=== PATIENT | male | born 1975 | race African-American/Black ===

== ENCOUNTER 2020-10-01 18:01 | Observation (INO) ==
[2020-10-01] MEDS ORDERED: LORazepam 2 MG/1 ML VIAL IV STA (18:24)
[2020-10-01] MEDS ORDERED: FUROSEMIDE 40 MG/4 ML VIAL IV STA (18:24)
[2020-10-01 18:37] LABS: Basophils % 0.4 % (0.0-0.8); Eosinophils # 0.2 10*3/uL (0.0-0.87); Eosinophils % 2.7 % (0.00-10.9); Hematocrit 39.1 VOL% (42.0-52.0); Hemoglobin 14.2 GM/DL (14.0-18.0); Immature Granulocytes % 0.7 %; Immature Granulocytes Absolute 0.05 #; Lymphocytes % 13.5 % (21.2-54.2); Mean Corpuscular HGB Conc 36.3 GM/DL (32-36); Mean Corpuscular Volume 98.5 FL (87-102); Mean Platelet Volume 12.5 FL (9.6-12.0); Monocytes # 0.5 10*3/uL (0.11-0.8); Monocytes % 6.2 % (1.7-12.7); Neutrophils % 76.5 % (38.7-73.9); Platelet Count 128 T/CUMM (130-400); Red Blood Count 3.97 MC/CUMM (3.8-5.5); Red Cell Distribution Width 14.3 % (9.3-17.3); White Blood Count 7.4 T/CUMM (4-12)
[2020-10-01 18:45] LABS: INR 1.1; PT Patient Result 11.8 SECS (9.8-11.9)
[2020-10-01 19:03] LABS: Alanine Aminotransferase 107 U/L (16-61); Albumin 3.9 G/DL (3.4-5.0); Alkaline Phosphatase 81 U/L (45-117); Aspartate Amino Transferase 120 U/L (0-37); Blood Urea Nitrogen 8 MG/DL (7-18); Calcium 9.4 MG/DL (8.5-10.1); Carbon Dioxide 24 MMOL/L (21-32); Chloride 99 MMOL/L (98-107); Estimated Glom Filtration Rate 108 ML/MIN; Glucose 101 MG/DL (74-106); Potassium 3.4 MMOL/L (3.5-5.1); Sodium 136 MMOL/L (136-145)
[2020-10-01 19:04] LABS: Troponin I 0.178 NG/ML (0.00-0.045)
[2020-10-01] MEDS ORDERED: ALBUTEROL 2.5 MG/3 ML NEB RESP TX PRN (19:21)
[2020-10-01] MEDS ORDERED: hydrALAZINE 20 MG/1 ML VIAL IV PRN (19:21)
[2020-10-01] MEDS ORDERED: ACETAMINOPHEN 325 MG TABLET PO PRN (19:21)
[2020-10-01] MEDS ORDERED: ASPIRIN 325 MG TABLET PO STA (19:39)
[2020-10-01] MEDS: LORazepam 2 MG/1 ML VIAL IV PRN (23:50)
[2020-10-02] MEDS: ENOXAPARIN 40 MG/0.4 ML SYRINGE SUBCUT SCH (05:40)
[2020-10-02 06:47] LABS: Basophils # 0.1 10*3/uL (0.0-0.2); Basophils % 0.8 % (0.0-0.8); Eosinophils % 0.3 % (0.00-10.9); Hematocrit 36.9 VOL% (42.0-52.0); Immature Granulocytes % 0.3 %; Immature Granulocytes Absolute 0.02 #; Lymphocytes # 1.6 10*3/uL (1.4-4.0); Lymphocytes % 26.5 % (21.2-54.2); Mean Corpuscular HGB Conc 35.2 GM/DL (32-36); Mean Corpuscular Volume 100.5 FL (87-102); Mean Platelet Volume 12.9 FL (9.6-12.0); Monocytes # 0.6 10*3/uL (0.11-0.8); Monocytes % 9.2 % (1.7-12.7); Neutrophils % 62.9 % (38.7-73.9); Platelet Count 114 T/CUMM (130-400); Red Blood Count 3.67 MC/CUMM (3.8-5.5); Red Cell Distribution Width 14.4 % (9.3-17.3); White Blood Count 6.1 T/CUMM (4-12)
[2020-10-02 06:59] LABS: Calcium 8.8 MG/DL (8.5-10.1); Potassium 2.9 MMOL/L (3.5-5.1)
[2020-10-02 07:27] LABS: Folate 4.4 NG/ML (5.4-24.0)
[2020-10-02 07:51] LABS: Hepatitis B Core IgM Quant 0.22 Index; Hepatitis B Surface Ag Quant < 0.10 Index; Hepatitis B Surface Ag Result Negative (Negative); Hepatitis C Virus Ab Quant < 0.02 Index; Hepatitis C Virus Ab Result Negative (Negative)
[2020-10-02] MEDS: THIAMINE 200 MG/2 ML VIAL IV SCH (08:37)
[2020-10-02] MEDS: POTASSIUM CHLORIDE 20 MEQ TABLET PO PRN ×5 (08:38→17:48)
[2020-10-02] MEDS: ASPIRIN EC 81 MG TABLET PO SCH (08:38)
[2020-10-02] MEDS: PANTOPRAZOLE 40 MG TABLET PO SCH (08:38)
[2020-10-02] MEDS ORDERED: INFLUENZA VIRUS VACCINE 0.5 ML SYRINGE IM ONE (08:44)
[2020-10-02] MEDS: LORazepam 2 MG/1 ML VIAL IV PRN ×4 (09:51→22:36)
[2020-10-02] MEDS ORDERED: FUROSEMIDE 40 MG/4 ML VIAL IV ONE ×2 (10:03→17:00)
[2020-10-02] MEDS: lisinopriL 10 MG TABLET PO SCH (10:30)
[2020-10-02] MEDS: SPIRONOLACTONE 25 MG TABLET PO SCH (10:30)
[2020-10-02] MEDS: METOPROLOL SUCCINATE XL 25 MG TABLET PO SCH (10:30)
[2020-10-03] MEDS: chlordiazePOXIDE 25 MG CAPSULE PO SCH ×5 (00:54→23:41)
[2020-10-03] MEDS: LORazepam 2 MG/1 ML VIAL IV PRN ×3 (04:02→18:46)
[2020-10-03] MEDS: ENOXAPARIN 40 MG/0.4 ML SYRINGE SUBCUT SCH ×2 (04:02→21:34)
[2020-10-03 05:26] LABS: Basophils % 0.7 % (0.0-0.8); Eosinophils % 0.7 % (0.00-10.9); Hematocrit 37.7 VOL% (42.0-52.0); Hemoglobin 13.4 GM/DL (14.0-18.0); Immature Granulocytes % 0.4 %; Immature Granulocytes Absolute 0.02 #; Lymphocytes # 1.5 10*3/uL (1.4-4.0); Lymphocytes % 27.3 % (21.2-54.2); Mean Corpuscular HGB Conc 35.5 GM/DL (32-36); Mean Corpuscular Volume 100.3 FL (87-102); Monocytes # 0.6 10*3/uL (0.11-0.8); Monocytes % 10.4 % (1.7-12.7); Neutrophils % 60.5 % (38.7-73.9); Platelet Count 126 T/CUMM (130-400); Red Blood Count 3.76 MC/CUMM (3.8-5.5); White Blood Count 5.6 T/CUMM (4-12)
[2020-10-03 05:47] LABS: Calcium 9.1 MG/DL (8.5-10.1); Potassium 3.1 MMOL/L (3.5-5.1)
[2020-10-03 05:48] LABS: Albumin 3.2 G/DL (3.4-5.0); Bilirubin,Direct 0.52 MG/DL (0.0-0.20); Bilirubin,Indirect 1.1 MG/DL (0.0-1.0); Bilirubin,Total 1.6 MG/DL (0.2-1.0); Calcium 9.1 MG/DL (8.5-10.1); Potassium 3.1 MMOL/L (3.5-5.1)
[2020-10-03] MEDS: POTASSIUM CHLORIDE 20 MEQ TABLET PO PRN ×2 (06:34→09:39)
[2020-10-03] MEDS ORDERED: FUROSEMIDE 80 MG TABLET PO SCH (09:00)
[2020-10-03] MEDS ORDERED: POTASSIUM CHLORIDE 20 MEQ TABLET PO ONE (09:38)
[2020-10-03] MEDS: ASPIRIN EC 81 MG TABLET PO SCH (09:39)
[2020-10-03] MEDS: METOPROLOL SUCCINATE XL 25 MG TABLET PO SCH (09:40)
[2020-10-03] MEDS: PANTOPRAZOLE 40 MG TABLET PO SCH (09:40)
[2020-10-03] MEDS: THIAMINE 200 MG/2 ML VIAL IV SCH (09:41)
[2020-10-03] MEDS: SPIRONOLACTONE 25 MG TABLET PO SCH (09:44)
[2020-10-03] MEDS: lisinopriL 10 MG TABLET PO SCH (09:44)
[2020-10-03] MEDS ORDERED: FUROSEMIDE 40 MG TABLET PO SCH (16:00)
[2020-10-04] MEDS: LORazepam 2 MG/1 ML VIAL IV PRN (01:59)
[2020-10-04 02:05] VITALS: BP 101/72
== END 2020-10-04 03:11 | disposition left against medical advice (07) ==
LOC: N.EDINP 18:01 → N.ED 18:01 → SUATTDRO 19:21 → N.EDINP 21:30 → N.TELEN 22:08
PROVIDERS: ADMIT Internal Medicine; ATTEND Internal Medicine